=== PATIENT | female | born 1960 | race Caucasian/White ===

== ENCOUNTER 2017-12-15 09:52 | Outpatient (CLI) | payer OTHER ==
--- NOTE | 2017-12-15 11:15 | Diagnostic Imaging Report ---
CAIO GODWIN [facility] [id number] [facility] [address] [place] [address]. [id number] Report Submission Date: Dec 15, 2017 10:31:59 AM PROFESSOR OF LITERATURE Patient Study Name: DEBBIE FERREIRA Date: Dec 15, 2017 10:02:06 AM PROFESSOR OF LITERATURE Modality Type: DX Gender: F Description: SPINE : 64 Institution: [facility] Physician: CAIO GODWIN Examination: Plain film lumbar spine History: PT STATES HX OF BROKEN BACK X 15 YRS AGO, BACK PAIN IN LOWER PART OF BACK (Hx) Comparison exam: None provided. Findings: 3 views of the lumbar spine demonstrates significant curvature to the left. No anterior compression. Osteophyte formation. No soft tissue abnormalities. Surgical clips right upper quadrant. Impression: Significant leftward scoliotic curvature. Degenerative changes. No overt compression deformity. Electronically signed on Dec 15, 2017 10:31:59 AM PROFESSOR OF LITERATURE by: Cameron PALOMO
== END 2017-12-15 10:00 ==
LOC: LAB 09:52
PROVIDERS: ATTEND Family Medicine
DX: J44.9 Chronic obstructive pulmonary disease, unspecified (principal); M54.5 Low back pain
CPT/HCPCS: 36415; 72100; 82104

== ENCOUNTER 2018-02-05 11:56 | Outpatient (CLI) | payer OTHER ==
--- NOTE | 2018-02-16 14:13 | CONSULTATION REPORT ---
PRIMARY CARE PROVIDER: Dr. Emma Solares CONSULTING PHYSICIAN: Marichuy Brar MD CHIEF COMPLAINT: "I am here because of my breathing." SIGNIFICANT PROBLEM LIST: 1. Moderate chronic obstructive pulmonary disease (COPD), GOLD Class 2. 2. Gastroesophageal reflux disease (GERD). 3. Hyperlipidemia. 4. Depression. 5. Anxiety. 6. Current tobacco use. HISTORY OF PRESENT ILLNESS: This is a 57-year-old female who apparently is in the process of transitioning her care from [facility] to [facility] with her primary care provider now Dr. Emma Solares. The patient saw Dr. Solares on December 15, 2017, complaining of shortness of breath. Dr. Solares increased her Symbicort dose to 160/4.5 mcg and instructed the patient to please use this b.i.d. Patient was also given a prednisone taper. Patient saw Dr. Solares again on January 12, 2018, complaining of shortness of breath. At that time, Dr. Solares gave her samples of the inhaler, Trelegy, and asked her to stop everything except her p.r.n. albuterol inhaler. Patient also has a prescription for Chantix, although has only taken it 1 day. Patient states that she gets short of breath after walking half a block. She likes using her albuterol nebulizer 4 times a day and feels that it helps her. She states the prednisone taper helps her also. Patient has occasional chest pain. She complains of PND. She denies edema. She has GERD. She complains of sinus congestion and postnasal drip. She has been on prednisone and antibiotics in the past for her lungs. She denies any hemoptysis. She states that she has a cough periodically and coughs up cloudy sputum. No green, yellow, or red color. She denies fever, chills, or sweats. Her weight is stable. Appetite is reasonable. Energy level is reasonable. She states she does have a history of asthma and pneumonias in the past and denies any DVT. Patient currently is smoking approximately 1 pack per day. She has been smoking for 40 years and at her peak, she was smoking 2 to 3 packs per day. REVIEW OF SYSTEMS: Please see HPI for pertinent review of systems. Please also see [facility] patient intake record. ALLERGIES: Penicillin: Rash. MEDICATIONS: 1. Seroquel 50 mg at bedtime. 2. Vistaril 250 mg p.r.n. 3. Xanax 0.25 mg daily. 4. Albuterol inhaler p.r.n. shortness of breath (uses mainly when she is out of the house. Sometimes 4 to 6 times per day). 5. Trelegy inhaler daily. 6. Combivent inhaler p.r.n. (She uses it 1 to 2 times per week). 7. Lovastatin 40 mg daily. 8. Terbinafine 250 mg daily. 9. Ranitidine 150 mg b.i.d./p.r.n. 10. Albuterol via nebulizer 3 to 4 times per day. 11. Aspirin 81 mg daily. Trelegy Inhaler: Fluticasone 100 mcg, umeclidinium 62.5 mcg, and vilanterol 25 mcg. SOCIAL HISTORY: She is not and lives alone. She uses occasional alcohol. Smoking history as noted in HPI. FAMILY HISTORY: Mother with lung disease. Father with cancer and heart disease. PHYSICAL EXAMINATION: VITAL SIGNS: BP: 137/87, P: 85, R: 22, T: 98.1, oxygen saturation is 96% on room air. Height: 4 feet 11 inches. Weight: 127 pounds. GENERAL: This is a well-nourished woman in no acute distress speaking in full sentences. HEENT: Pupils are equal and reactive to light. Oropharynx is clear. No thrush. No erythema. NECK: Supple. No JVD. No lymphadenopathy. LUNGS: Decreased bilateral air excursion. No wheezes, crackles, or rhonchi. No increase in tactile fremitus. CARDIAC: Rate and rhythm are regular. S1 and S2 without S3 or S4. No murmur , rubs, or gallops. ABDOMEN: Soft. Positive bowel sounds. Nontender. No organomegaly. EXTREMITIES: No cyanosis, clubbing, or edema. NEUROLOGIC: Alert and oriented x3. Grossly nonfocal. IMAGIN. Chest CT done on December 08, 2017, done at [facility] per report only. No pulmonary embolism. Significant emphysema. 2. PFT done on November 06, 2017, from [facility]. I have reviewed the tracing. FVC was 1.87 liters, 83% of predicted, FEV1 was 1.47 liters, 62% of predicted, FEV1/FVC was 0.73. There is no bronchodilator response. Interpretation: Moderate COPD, GOLD Class 2. LABORATORIES: Lab done on December 15, 2017, showed an Alpha-1 Antitrypsin was within normal limits. ASSESSMENT AND PLAN: PROBLEM #1: Moderate chronic obstructive pulmonary disease (COPD), GOLD Class 2. Patient states she is doing okay on the Trelegy inhaler and using her albuterol p.r.n. PLAN: 1. Continue Trelegy inhaler. 2. Continue albuterol inhaler p.r.n. 3. Continue albuterol nebulizer p.r.n. 4. Obtain radiology from [facility] on CD. 5. Chest x-ray prior to next visit. PROBLEM #2: Current tobacco use. Patient states she does have a Chantix prescription but has only taken it 1 day. PLAN: 1. Continue to encourage tobacco cessation. 2. Continue Chantix as prescribed. 3. Patient to bring Chantix prescription on the next visit. 4. Return to clinic in 1 month. cc: Dr. Emma PALOMO
== END 2018-02-05 11:58 ==
LOC: PULMONARY 11:56
PROVIDERS: ATTEND Internal Medicine Pulmonary Disease
DX: J44.9 Chronic obstructive pulmonary disease, unspecified (principal); Z72.0 Tobacco use; K21.9 Gastro-esophageal reflux disease without esophagitis; E78.5 Hyperlipidemia, unspecified; F32.3 Major depressive disorder, single episode, severe with psychotic features; F41.9 Anxiety disorder, unspecified
CPT/HCPCS: 99213; 99214

== ENCOUNTER 2018-02-15 13:23 | Outpatient (CLI) | payer OTHER ==
[2018-02-15 14:02] LABS: eGFR (African) > 60; eGFR (Non-African) > 60
== END 2018-02-15 13:25 ==
LOC: LAB 13:23
PROVIDERS: ATTEND Family Medicine
DX: Z79.899 Other long term (current) drug therapy (principal)
CPT/HCPCS: 36415; 80053

== ENCOUNTER 2018-03-05 10:53 | Outpatient (CLI) | payer OTHER ==
--- NOTE | 2018-03-05 17:37 | Diagnostic Imaging Report ---
RM CHARLES [facility] [address] [facility] [address] [address] Report Submission Date: March 05, 2018 3:06:46 PM CDT Patient Study Name: DEBBIE FERREIRA Date: March 05, 2018 11:39:54 AM CDT Modality Type: DX Gender: F Description: CHEST : 64 Institution: [facility] Physician: RM CHARLES HISTORY: 57-year-old female with cough, right-sided chest pain, emphysema, asthma. COMPARISON: None available. TECHNIQUE: 2 views of the chest were performed. FINDINGS: The lungs are hyperexpanded and hyperlucent. No pneumothorax, consolidative infiltrates, pleural effusions, or pulmonary edema. The heart is not enlarged. There is thoracic dextroscoliosis and thoracolumbar levoscoliosis. IMPRESSION: 1. Pulmonary hyperexpansion suggestive of emphysema. 2. No acute intrathoracic process is identified here. 3. Thoracolumbar scoliosis. Electronically signed on March 05, 2018 3:06:46 PM CDT by: Duane PALOMO
== END 2018-03-05 11:00 ==
LOC: PULMONARY 10:53
PROVIDERS: ATTEND Internal Medicine Pulmonary Disease
DX: J18.9 Pneumonia, unspecified organism (principal)
CPT/HCPCS: 71046

== ENCOUNTER 2018-03-23 10:51 | Outpatient (CLI) | payer OTHER ==
[2018-03-23] MEDS ORDERED: ALBUTEROL SULFATE 2.5 MG/3 ML AMPUL.NEB NEB ONE (10:57)
[2018-03-23 11:16] LABS: ABG BASE EXCESS -4.8 (-2 - +2); ABG PH 7.37 (7.35-7.45)
== END 2018-03-23 10:52 ==
LOC: RT 10:51
PROVIDERS: ATTEND Internal Medicine Pulmonary Disease
DX: J44.1 Chronic obstructive pulmonary disease with (acute) exacerbation (principal)
CPT/HCPCS: 36600; 82803; 94060

== ENCOUNTER 2018-04-02 11:37 | Outpatient (CLI) | payer OTHER ==
--- NOTE | 2018-04-15 11:29 | OP Clinic Progress Note ---
PRIMARY CARE PROVIDER: Dr. Emma Solares CHIEF COMPLAINT: "For the last 3 days, I feel like my lungs are filling up." SIGNIFICANT PROBLEM LIST: 1. Moderate chronic obstructive pulmonary disease (COPD), GOLD Class 2. 2. Gastroesophageal reflux disease (GERD). 3. Hyperlipidemia. 4. Depression. 5. Anxiety. 6. Current tobacco use. HISTORY OF PRESENT ILLNESS: Patient states that since our last visit on March 05, 2018, she took the prednisone taper and antibiotics as directed. She felt well until approximately 3 days ago when she describes it as her lungs are "filling up." She uses her ProAir rescue inhaler very 2 to 3 hours. She states that this is baseline. She takes her DuoNeb every 4 hours. In reviewing her medications, she does state that she is using DuoNeb and not albuterol via the nebulizer. She states that the prednisone tapers definitely help her. She continues to smoke at least a half a pack per day. She is not using Chantix now and states that a physician told her to use a nicotine patch of 14 mg, which she said did not help her at all. She continues to use Trelegy inhaler on a daily basis and states that is also helping her. ALLERGIES: Penicillin: Rash. MEDICATIONS: 1. Quetiapine 50 mg at bedtime. 2. Vistaril 250 mg p.r.n. 3. Xanax 0.25 mg daily. 4. Lovastatin 40 mg daily. 5. Terbinafine 250 mg daily. 6. Ranitidine 150 mg b.i.d. 7. Aspirin 81 mg daily. 8. Trelegy inhaler 1 inhalation daily. 9. DuoNeb via nebulizer every 4 hours p.r.n. 10. Albuterol MDI 90 mcg 2 to 3 puffs every 2 to 3 hours p.r.n. shortness of breath. Please note, Trelegy inhaler: Fluticasone 100 mcg; umeclidinium 62.5 mcg; vilanterol 25 mcg. PHYSICAL EXAMINATION: VITAL SIGNS: BP: 128/76, P: 87, R: 22, T: 97. Room air oxygen saturation was 98%. General: This is a well-developed, well-nourished female in no distress speaking in full sentences. HEENT: Pupils are equal and reactive to light. Oropharynx: Clear. No thrush or erythema. Neck: Supple. No lymphadenopathy. Lungs: Bilateral wheezing. No rales or rhonchi. Cardiac: Rate and rhythm are regular. No murmur, rubs, or gallops. Abdomen: Soft and nontender. Extremities: No cyanosis, clubbing, or edema. Neurologic: Alert and oriented x3. Grossly nonfocal exam. IMAGING: All imaging independently reviewed by me personally. 1. PFT on March 23, 2018. FVC was 2.37 liters, 90% of predicted; FEV1 was 1.32 liters, 60% of predicted; FEV1/FVC was 0.56. There is no bronchodilator response. INTERPRETATION: Moderate COPD, GOLD Class 2. 2. ABG on March 23, 2018. There was a pH of 7.37, pCO2 of 34, pO2 of 66. ASSESSMENT AND PLAN: PROBLEM #1: Acute exacerbation of chronic obstructive pulmonary disease ( COPD), GOLD Class 2. PLAN: 1. Azithromycin for 5 days via a Z-Pack. 2. Prednisone taper as before: 40 mg for 3 days, 30 mg for 3 days, 20 mg for 3 days, 15 mg for 3 days, 10 mg for 3 days, 5 mg for 3 days, and then discontinue. 3. Continue Trelegy inhaler. 4. Continue albuterol MDI rescue inhaler p.r.n. 5. Continue DuoNeb nebulizer q.i.d. and p.r.n. PROBLEM #2: Current tobacco use. Patient continues to smoke at least a half a pack a day. At present, she is not taking Chantix. PLAN: 1. Nicotine patch at 21 mg per day. 2. Nicotine Gum to be used p.r.n. in conjunction with the nicotine patch. 3. Continue to encourage tobacco cessation. 4. Return to clinic in 2 months. cc: Dr. Emma PALOMO
== END 2018-04-02 13:48 ==
LOC: PULMONARY 11:37
PROVIDERS: ATTEND Internal Medicine Pulmonary Disease
DX: J44.1 Chronic obstructive pulmonary disease with (acute) exacerbation (principal); Z72.0 Tobacco use
CPT/HCPCS: 99213; 99214

== ENCOUNTER 2018-06-04 11:28 | Outpatient (CLI) | payer OTHER ==
[2018-06-04 14:18] VITALS: BP 124/87
--- NOTE | 2018-06-07 15:18 | OP Clinic Progress Note ---
PRIMARY CARE PROVIDER: Dr. Emma Solares CHIEF COMPLAINT: "I am having trouble breathing. My lungs are filling up." SIGNIFICANT PROBLEM LIST: 1. Moderate chronic obstructive pulmonary disease (COPD), GOLD Class 2. 2. Gastroesophageal reflux disease (GERD). 3. Hyperlipidemia. 4. Depression. 5. Anxiety. 6. Current tobacco use. HISTORY OF PRESENT ILLNESS: Patient was last seen in the Pulmonary Clinic on April 02, 2018. At that time, patient was having an acute exacerbation of COPD and I prescribed her a prednisone taper, a course of azithromycin, and instructed her to use a 21 mg nicotine patch and use nicotine gum p.r.n. The patient currently states that she is very short of breath and feels like her lungs are filling up. She states she went to [facility] last Thursday, May 14, 2018. She was only seen in the ED and was not admitted. She states she does not know what the ED gave her but she did have 1 nebulizer. She stated that she say Dr. Emma Solares either this last Thursday or Thursday. Please note, we can find no record of Ms. Talley having seen Dr. Solares as mentioned. Patient also states that she did use the nicotine 21 mg patch as I instructed but then says she saw her psychiatrist and the psychiatrist gave her a prescription for a nicotine patch that the patient has not picked up. She states that she has decreased her tobacco use to 7 cigarettes a day. I have received records from [facility] after the patient had left the Pulmonary Clinic. Patient did go to [facility] Emergency Department on May 14, 2018, and was clocked in at approximately 10:38. Initial vital signs were a blood pressure of 120/95, pulse of 86, respiratory rate of 23, oxygen saturation on room air was 88%. Patient underwent a chest x-ray, BNP, CBC, CMP, and troponin I. The chest x-ray is reported as clear. No active disease. Laboratories, WBC was 10, hemoglobin 17.8, hematocrit 52.3, platelets 278. Chemistries, sodium 140, potassium 4.5, chloride 100, CO2 was 25, BUN 10, creatinine was 1.0, glucose 126. LFTs within normal limits. BNP was less than 5. Troponin I was less than 0.012. Patient in the ED received albuterol/ipratropium via nebulizer x1; levofloxacin 750 mg IV x1; and methylprednisolone 125 mg IV x1. Patient was subsequently discharged at approximately 2:50 p.m. Discharge medications included levofloxacin 500 mg daily for 7 days and prednisone 20 mg b.i.d. for 5 days. ALLERGIES: Penicillin: Rash MEDICATIONS: 1. Quetiapine 50 mg at bedtime. 2. Vistaril 250 mg p.r.n. 3. Xanax 0.25 mg daily. 4. Lovastatin 40 mg daily. 5. Terbinafine 250 mg daily. 6. Ranitidine 150 mg b.i.d. 7. Aspirin 81 mg daily. 8. Trelegy inhaler (fluticasone 100 mcg; umeclidinium 62.5 mcg; vilanterol 25 mcg) 1 inhalation daily. 9. DuoNeb via nebulizer every 4 hours p.r.n. 10. Albuterol MDI 90 mcg 2 to 3 puffs every 2 to 3 hours p.r.n. shortness of breath PHYSICAL EXAMINATION: VITAL SIGNS: BP: 135/91, P: 84, R: 24, T: 97.1, room air oxygen saturation is 98%. Weight: 132 pounds (increase of weight of 2 pounds since last visit). GENERAL: This is a well-developed, well-nourished female in mild to moderate respiratory distress and unable to speak comfortably in full sentences. HEENT: Pupils are equal and reactive to light. Oropharynx is clear. No thrush. No erythema. NECK: Supple. No lymphadenopathy. LUNGS: Diminished bilateral air excursion. Diffuse bilateral wheezing. CARDIAC: Rate and rhythm are regular. No murmur, rubs, or gallops. ABDOMEN: Soft and nontender. EXTREMITIES: No cyanosis, clubbing, or edema. NEUROLOGIC: Alert and oriented x3. Grossly nonfocal exam. ASSESSMENT AND PLAN: PROBLEM #1: Acute exacerbation of chronic obstructive pulmonary disease (COPD) in a patient with GOLD Class 2 COPD. Since the patient was in obvious respiratory distress and unable to speak clearly in full sentences due to her respiratory distress, patient was sent to the emergency department for the appropriate intervention. cc: Dr. Emma PALOMO
== END 2018-06-04 12:06 ==
LOC: PULMONARY 11:28
PROVIDERS: ATTEND Internal Medicine Pulmonary Disease
DX: J44.9 Chronic obstructive pulmonary disease, unspecified (principal); K21.9 Gastro-esophageal reflux disease without esophagitis; E78.5 Hyperlipidemia, unspecified; F17.210 Nicotine dependence, cigarettes, uncomplicated
CPT/HCPCS: 99214

== ENCOUNTER 2018-06-04 11:57 | Emergency (ER) | payer OTHER ==
[2018-06-04] MEDS ORDERED: IPRATROPIUM/ALBUTEROL SULFATE 3 ML AMPUL.NEB NEB ONE (12:12)
--- NOTE | 2018-06-04 12:12 | ED Physician Documentation ---
General Adult - HISTORIAN Historian: patient - HPI Stated Complaint: diff breathing Chief Complaint: General Adult Onset: days ago Timing: still present Severity: moderate Further Comments: yes (Pt is a 58 yo female with COPD who presents with wheezing and sob. Pt was to see color checker today, but was so wheezy she was sent to ER. Pt states that sx recur when she goes off oral steroids. Pt was on a steroid taper about a month ago for COPD exacerbation. SpO2 is 92% RA on presentation.) - ROS CONST: no problems EYES/ENT: none CVS/RESP: shortness of breath (wheezing) GI/: none MS/SKIN/LYMPH: none - PAST HX Past History: asthma, COPD, other (depression) Allergies/Adverse Reactions: Allergies Allergy/AdvReac Type Severity Reaction Status Date / Time Penicillins Allergy Verified 06/04/18 12:06 Home Medications: Ambulatory Orders Medication Instructions Recorded Alprazolam [Xanax] 0.25 mg PO BID u2 12/15/17 Hydroxyzine Pamoate [Vistaril] 25 mg PO QID PRN av 12/15/17 Quetiapine Fumarate [Seroquel] 200 mg PO HS u2 12/15/17 Lovastatin 40 mg PO HS u2 02/13/18 - SOCIAL HX Smoking History: cigarettes - FAMILY HX Family History: No (unk) - VITAL SIGNS Vital Signs: Vital Signs Temp Pulse Resp BP Pulse Ox 98.1 F 92 H 22 121/91 98 06/04/18 11:57 06/04/18 11:57 06/04/18 11:57 06/04/18 11:57 06/04/18 11:57 - REVIEWED ASSESSMENTS Nursing Assessment Reviewed: Yes Vitals Reviewed: Yes Progress - Progress Progress: CXR: Comparison exam: 05 Mar 2018 Findings: PA and lateral views of the chest demonstrates a normal cardiac and mediastinal silhouette. Stable interstitial changes. Region of parenchymal fullness involving the right lower lung. No blunting of the costophrenic margins. Osseous structures are appropriate for age. Impression: Region of parenchymal fullness right lower lung - focal infiltrate versus rib summation artifact. If warranted, consider CT chest to further evaluate. Duoneb HFN Pulmicort HFN Solu-medrol 80 mg IV Albuterol HFN much improved d/c instructions: Prednisone 5 mg. Take 4 tabs by mouth at the same time once each day for 3 days; then take 3 tabs by mouth once daily for 3 days; then take 2 tabs by mouth once daily for 3 days; then take 1 tab by mouth once daily for 3 days; then stop. Continue home medications. Follow up with color checker as planned. General Adult Physical Exam - PHYSICAL EXAM GENERAL APPEARANCE: moderate distress EENT: pharynx normal NECK: normal inspection, supple RESPIRATORY: wheezes (b/l all lung lopez) CVS: reg rate & rhythm, heart sounds normal ABDOMEN: soft, no organomegaly, normal bowel sounds BACK: normal inspection, no CVA tenderness SKIN: warm/dry, normal color EXTREMITIES: non-tender, normal range of motion, no evidence of injury, no edema NEURO: oriented X3, motor nml, sensation nml Discharge Clincal Impression: COPD (chronic obstructive pulmonary disease) Qualifiers: COPD type: COPD with acute exacerbation Qualified Code(s): J44.1 - Chronic obstructive pulmonary disease with (acute) exacerbation Referrals: Emma Solares MD [Primary Care Provider] - Condition: Stable Disposition: 01 HOME, SELF-CARE Decision to Admit: NO Decision Time: 14:01
[2018-06-04] MEDS ORDERED: BUDESONIDE 0.5MG/2ML AMPUL.NEB NEB ONE (12:14)
[2018-06-04] MEDS ORDERED: methylPREDNISolone SOD SUCC 125 MG/2 ML VIAL IVP ONE (12:51)
[2018-06-04] MEDS ORDERED: methylPREDNISolone SOD SUCC 40 MG/ML VIAL ONE (12:53)
[2018-06-04] MEDS ORDERED: BUDESONIDE 0.5MG/2ML AMPUL.NEB NEB SCH (13:00)
[2018-06-04] MEDS ORDERED: ALBUTEROL SULFATE 2.5 MG/3 ML AMPUL.NEB NEB ONE (13:00)
[2018-06-04 13:29] LABS: EOSINOPHILS % 2.1 % (0.0-6.8); MONOCYTES % 4.4 % (0.0-11.0); NEUTROPHILS # 3.6 # k/uL (1.4-7.7)
[2018-06-04 13:31] LABS: eGFR (African) > 60; eGFR (Non-African) > 60
[2018-06-04 13:33] LABS: MEAN CORPUSCULAR HEMOGLOBIN 32.3 pg (28.0-34.0); MEAN CORPUSCULAR VOLUME 93.9 fl (80.0-100.0)
[2018-06-04 14:18] VITALS: BP 124/87
--- NOTE | 2018-06-04 19:45 | Diagnostic Imaging Report ---
OSMANY LAL [facility] [address] [facility] [address] [address] Report Submission Date: Jun 04, 2018 1:11:40 PM CDT Patient Study Name: DEBBIE FERREIRA Date: Jun 04, 2018 12:36:34 PM CDT Modality Type: DX Gender: F Description: CHEST : 64 Institution: [facility] Physician: OSMANY LAL Examination: PA and lateral chest. History: Evaluate lung lopez. CXR, SOA, WHEEZING X3 DAYS, WORSENING, PT STATES HX OF COPD, EMPHYSEMA, ASTHMA, SMOKER (Hx) Comparison exam: 05 Mar 2018 Findings: PA and lateral views of the chest demonstrates a normal cardiac and mediastinal silhouette. Stable interstitial changes. Region of parenchymal fullness involving the right lower lung. No blunting of the costophrenic margins. Osseous structures are appropriate for age. Impression: Region of parenchymal fullness right lower lung - focal infiltrate versus rib summation artifact. If warranted, consider CT chest to further evaluate. Electronically signed on Jun 04, 2018 1:11:40 PM CDT by: Cameron PALOMO
== END 2018-06-04 14:16 | disposition home or self-care (01) ==
LOC: ED 11:57
DX: J44.1 Chronic obstructive pulmonary disease with (acute) exacerbation (principal)
CPT/HCPCS: 71046; 80053; 85025; 85379; J2930; J7626; 94640; 96374; 99284; S1016